=== PATIENT | male | born 1990 | race Caucasian/White ===

== ENCOUNTER 2021-07-06 16:03 | Emergency (ER) | payer OTHER ==
[~2021-07-06] VITALS: Ht 180.3 cm; Wt 90.9 kg
[2021-07-06] MEDS ORDERED: LIDOCAINE 1% MDV 20ML VIAL SC ONE (19:40)
[2021-07-06] MEDS ORDERED: CEPH500C PO (20:08)
[2021-07-06] MEDS ORDERED: NEOSPORIN OINT 0.9 GM PKT TOP ONE (20:10)
[2021-07-06 20:21] VITALS: BP 124/72
== END 2021-07-06 20:23 | disposition home or self-care (01) ==
LOC: M ED 16:03
DX: S80.851A Superficial foreign body, right lower leg, initial encounter (principal); W45.8XXA Other foreign body or object entering through skin, initial encounter; F17.200 Nicotine dependence, unspecified, uncomplicated; Y92.9 Unspecified place or not applicable; Y93.9 Activity, unspecified; Y99.9 Unspecified external cause status